=== PATIENT | male | born 1950 | race Caucasian/White ===

== ENCOUNTER 2022-06-08 04:25 | Day surgery (SDC) | payer OTHER ==
[2022-06-07 14:54] VITALS: BMI 29.1
[2022-06-08 10:47] VITALS: TEMP 98.2
[2022-06-08 12:22] VITALS: BP 114/97; PULSE 51; RESP 19
== END 2022-06-08 11:50 | disposition home or self-care (01) ==
LOC: JASU-ENDO 04:25
PROVIDERS: ATTEND Internal Medicine Gastroenterology
PROC: 0DBN8ZX Excision of Sigmoid Colon, Via Natural or Artificial Opening Endoscopic, Diagnostic (ICD-10-PCS; 2022-06-08)
PROC: 0DBM8ZX Excision of Descending Colon, Via Natural or Artificial Opening Endoscopic, Diagnostic (ICD-10-PCS; 2022-06-08)
PROC: 0DBH8ZX Excision of Cecum, Via Natural or Artificial Opening Endoscopic, Diagnostic (ICD-10-PCS; principal; 2022-06-08 10:00)
DX: Z12.11 Encounter for screening for malignant neoplasm of colon (principal); D12.0 Benign neoplasm of cecum; D12.4 Benign neoplasm of descending colon; D12.5 Benign neoplasm of sigmoid colon; K57.30 Diverticulosis of large intestine without perforation or abscess without bleeding; K64.8 Other hemorrhoids; I10 Essential (primary) hypertension; Z86.010 Personal history of colon polyps
CPT/HCPCS: 88305-TC

== ENCOUNTER 2023-07-22 14:29 | Emergency (ER) | payer OTHER ==
[2023-07-22 14:43] VITALS: BP 157/79; PULSE 65; RESP 20; TEMP 98.2; BMI 29.8
[2023-07-22 15:47] LABS: BASO % 0.4 % (0-2.0); EOS % 2.4 % (0-4.5); HEMATOCRIT 41.1 % (35.4-49); HEMOGLOBIN 14.1 GM/dL (11.7-16.9); LYMPH % 19.1 % (8-40); MCH 32.9 pg (25.7-33.7); MCHC 34.3 g/dl (32.0-35.9); MEAN CELL VOLUME 96.1 fl (80-96); MEAN PLT VOLUME 7.4 fl (7.5-11.1); NEUT % 68.1 % (42.8-82.8); PLATELET COUNT 180 10^3/uL (134-434); RBC 4.28 M/mm3 (4.00-5.60); RDW 14.6 % (11.9-15.9); WHITE BLOOD COUNT 5.8 K/mm3 (4.0-10.0)
[2023-07-22 15:52] LABS: EPI CELLS 3 /uL (0-25.1); HYALINE CASTS 0 /uL (0-3.1); URINE APPEARANCE CLEAR; URINE BACTERIA 2 /uL (0-1359); URINE BILIRUBIN NEGATIVE (NEGATIVE); URINE COLOR YELLOW; URINE GLUCOSE (UA) NEGATIVE (NEGATIVE); URINE KETONE NEGATIVE (NEGATIVE); URINE LEUK ESTERASE TRACE (NEGATIVE); URINE NITRITE NEGATIVE (NEGATIVE); URINE PROTEIN NEGATIVE (NEGATIVE); URINE RBC 11 /uL (0-23.9); URINE UROBILINOGEN 0.2 mg/dL (0.2-1.0); URINE WBC 6 /uL (0-25.8)
[2023-07-22 18:01] LABS: POTASSIUM 4.1 mmol/L (3.5-5.1)
[2023-07-22 18:03] LABS: CALCIUM 9.2 mg/dL (8.5-10.1)
[2023-07-22 18:04] LABS: BLOOD UREA NITROGEN 13.6 mg/dL (7-18)
[2023-07-22] MEDS ORDERED: CEPHALEXIN MONOHYDRATE 500 MG CAPSULE (UD) PO ONE (18:33)
[2023-07-22] MEDS ORDERED: CEPHALEXIN MONOHYDRATE 500 MG CAPSULE (UD) ONE (18:38)
== END 2023-07-22 18:47 | disposition home or self-care (01) ==
LOC: JER 14:29
DX: M79.662 Pain in left lower leg (principal); R22.42 Localized swelling, mass and lump, left lower limb; N20.0 Calculus of kidney; M62.838 Other muscle spasm
CPT/HCPCS: 36415; 74176-TC; 80048; 81003; 85025; 87086; 93971-TC; 99285-25